=== PATIENT | male | born 1985 | race Two or more races ===

== ENCOUNTER 2021-10-27 01:32 | Emergency (ER) | payer OTHER ==
[~2021-10-27] VITALS: Ht 167.6 cm; Wt 90.7 kg
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
--- NOTE | 2021-10-27 01:45 | NUR ---
ANDRE & TAYLA ROM WNL AT THIS TIME.
--- NOTE | 2021-10-27 02:00 | NUR ---
[employer] AT PT'S BEDSIDE
--- NOTE | 2021-10-27 02:11 | NUR ---
PT TAKEN TO CT VIA KIAN
--- NOTE | 2021-10-27 02:22 | NUR ---
PT RETURNED TO ER BED 11
--- NOTE | 2021-10-27 03:01 | NUR ---
Pt left with [employer]/ Ambulatory with steady gait.
[2021-10-27 03:02] VITALS: BP 131/76
== END 2021-10-27 03:06 ==
LOC: ER 01:40
DX: F10.129 Alcohol abuse with intoxication, unspecified (principal); R51.9 Headache, unspecified; M54.2 Cervicalgia; V43.92XA Unspecified car occupant injured in collision with other type car in traffic accident, initial encounter; Y93.89 Activity, other specified; Y92.413 State road as the place of occurrence of the external cause; Y99.8 Other external cause status; Y90.9 Presence of alcohol in blood, level not specified
CPT/HCPCS: 70450-TC; 72125-TC